=== PATIENT | male | born 1970 | race American Indian/Alaskan Native ===

== ENCOUNTER 2017-03-23 16:54 | Emergency (ER) | payer OTHER, BC ==
[2017-03-23 17:19] VITALS: BP 131/91
[2017-03-23 19:14] LABS: Basophils % (Auto) 0.7 % (0.0-1.8); Eosinophils % (Auto) 2.6 % (0.0-4.3); Hematocrit 42.5 % (35.5-45.6); Hemoglobin 14.2 gm/dl (11.8-15.2); Mean Corpuscular HGB Conc 33 % (32-34); Mean Corpuscular Hemoglobin 30 pg (28-32); Mean Corpuscular Volume 89 fl (84-94); Platelet Count 200 K/mm3 (140-440); Red Blood Count 4.79 M/mm3 (3.65-5.03); Red Cell Distribution Width 15.4 % (13.2-15.2); White Blood Count 6.2 K/mm3 (4.5-11.0)
[2017-03-23] MEDS ORDERED: MOTRIN PO ONE (19:33)
[2017-03-23 19:39] LABS: Creatine Kinase MB 1.9 ng/mL (0.0-4.0)
[2017-03-23 19:41] LABS: BUN/Creatinine Ratio 12; Blood Urea Nitrogen 18 mg/dL (9-20); Calcium 9.1 mg/dL (8.4-10.2); Carbon Dioxide 25 mmol/L (22-30); Creatine Kinase 189 units/L (55-170); Glucose 82 mg/dL (75-100)
[2017-03-23 19:42] LABS: Anion Gap 19 mmol/L; Chloride 100.3 mmol/L (98-107); Potassium 4.3 mmol/L (3.6-5.0); Sodium 140 mmol/L (137-145)
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
== END 2017-03-23 21:39 | disposition home or self-care (01) ==
LOC: ED 16:54
DX: S46.912A Strain of unspecified muscle, fascia and tendon at shoulder and upper arm level, left arm, initial encounter (principal); I48.91 Unspecified atrial fibrillation; V89.2XXA Person injured in unspecified motor-vehicle accident, traffic, initial encounter; W22.10XA Striking against or struck by unspecified automobile airbag, initial encounter; Y93.89 Activity, other specified; Y99.8 Other external cause status; Y92.410 Unspecified street and highway as the place of occurrence of the external cause
CPT/HCPCS: 36415; 71020; 80048; 82550; 82553; 84484; 85025; 85379; 93005; 93010; 99283